=== PATIENT | male | born 1965 | race Caucasian/White ===

== ENCOUNTER 2017-07-08 09:44 | Day surgery (SDC) | payer BC ==
[2017-07-08] MEDS ORDERED: PROPOFOL 60 ML ONE (10:40)
[2017-07-08] MEDS ORDERED: LIDOCAINE 2% (SDV) 5 ML INJ ONE (10:40)
--- NOTE | 2017-07-08 20:32 | GILP ---
DATE OF PROCEDURE: 07/08/2017 PROCEDURES PERFORMED: 1. Esophagogastroduodenoscopy and biopsy. 2. Colonoscopy and biopsy. SURGEON: Dr. Hernandez. PREOPERATIVE DIAGNOSES: 1. Abdominal pain. 2. Chronic diarrhea. 3. Positive occult blood in stool. POSTOPERATIVE DIAGNOSES: 1. Hiatal hernia. 2. Reflux esophagitis. 3. Gastritis with erosions. 4. Gastric mucosal biopsies were taken for Helicobacter pylori test. 5. Small bowel biopsies were taken to rule out celiac disease. 6. Colonoscopy all the way to the cecum and into the terminal ilium. 7. Normal terminal ilium. 8. Internal hemorrhoids. 9. Random biopsies were taken to rule out microscopic colitis. INDICATION: Mr. Rolf To is a 51-year-old male patient who had upper abdominal pain and chronic diarrhea not responding to therapy. He also had positive occult blood in stool. He was scheduled for endoscopy and colonoscopy for further evaluation. The procedures and possible complications were well explained to the patient. He understood and consented to the procedures. DESCRIPTION OF PROCEDURE: Under the influence of anesthesia, the gastroscope was carefully introduced into the esophagus. Under direct vision, it was advanced to the stomach, into the pylorus, into the duodenal bulb, and descending duodenum. Findings esophagus, the patient had reflux esophagitis with erosions. Stomach, he had gastritis with erosions. Gastric mucosal biopsies were taken for Helicobacter pylori test. Duodenum was normal. Small bowel biopsies were taken to rule out celiac disease. The colonoscope was carefully introduced in the rectum and under direct vision, it was advanced all the way to the cecum into the ileocecal valve into the terminal ilium. Findings the terminal ilium was normal. The colonic mucosa was normal. Random biopsies were taken to rule out microscopic colitis. The patient was noted to have internal hemorrhoids. He tolerated the procedures very well. There was no complication from the procedures. At the end of procedure, he was awake with stable vital signs. He was discharged home in care of his family. IMPRESSION: See postop diagnoses. PLAN: 1. Nexium 24 hours p.o. q.a.m. 2. Bentyl 10 mg p.o. t.i.d. p.r.n. for diarrhea. 3. Await histopathology reports. Dictated By: MD NOHEMI Colon/ti/josephine /Document#: [id number]
== END 2017-07-08 15:02 | disposition home or self-care (01) ==
LOC: GIL 09:44 → EDBD 10:30 → GIL 15:02
PROVIDERS: ATTEND Internal Medicine Gastroenterology
DX: K92.1 Melena (principal); K44.9 Diaphragmatic hernia without obstruction or gangrene; K21.0 Gastro-esophageal reflux disease with esophagitis; K29.60 Other gastritis without bleeding
CPT/HCPCS: 43239; 45380; 87081; 88305; Z7610

== ENCOUNTER 2019-01-31 17:23 | Inpatient (IN) | payer BC ==
[~2019-01-31] VITALS: Ht 175.3 cm; Wt 71.9 kg
[2019-01-31 19:50] VITALS: Ht 175.3 cm; Wt 71.9 kg
[2019-01-31] MEDS ORDERED: ACETAMINOPHEN 325 MG TAB PO PRN (20:00)
[2019-01-31] MEDS ORDERED: ONDANSETRON 4 MG INJ IV PRN (20:00)
[2019-01-31] MEDS ORDERED: HYDROCODONE/APAP (5/325) TAB PO PRN (20:00)
[2019-01-31] MEDS ORDERED: NACL 0.9% 3 ML SYG IV SCH (20:00)
[2019-01-31 20:03] VITALS: BP 125/79; PULSE 86; RESP 18
[2019-01-31] MEDS ORDERED: MAGNESIUM HYDROXIDE 30ML CUP PO ONE (21:00)
[2019-01-31] MEDS ORDERED: ZOLPIDEM 5 MG TAB PO ONE (21:00)
[2019-01-31] MEDS: HEPARIN 5,000 UNIT/1 ML VIAL SC SCH (21:01)
[2019-01-31] MEDS: KETOROLAC 30 MG INJ IV PRN (21:15)
--- NOTE | 2019-01-31 23:19 | HP ---
Date/Time of Note Date/Time of Note DATE: 01/31/19 TIME: 23:19 Assessment/Plan VTE Prophylaxis Risk score (from Nsg)>0 risk: 3 SCD applied (from Nsg): Yes Pharmacological prophylaxis: heparin Lines/Catheters IV Catheter Type (from Nrsg): Saline Lock Assessment/Plan Assessment/Plan 1. Right lower extremity cellulitis -IV antibiotic -Venous study to evaluate for a DVT 2. History of testicular cancer, status post surgery in 2003 3. History of anxiety/PTSD/depression: No acute issue 4. History of hypertension: BP in acceptable range HPI/ROS Admit Date/Time Admit Date/Time Jan 31, 2019 at 19:19 Hx of Present Illness 14 This is a 8 patient initially presented on outside hospital complaining of right lower extremity swelling, redness and tenderness. He said this started about 2 weeks. He stated that he was hospitalized at [facility] [place] for about 3 days for a right lower extremity cellulitis. He said at the time of discharge, he did not notice improvement. He said he was discharged without antibiotic. When swelling and redness persists, he decided to come here for evaluation. PMH/Family/Social Past Medical History Medical History: other (See HPI) Medications Current Medications IV Flush (NS 3 ml) 3 ml PER PROTOCOL IV ; Start 01/31/19 at 20:00 Ondansetron HCl (Zofran Inj) 4 mg Q6H PRN IV NAUSEA/VOMITING; Start 01/31/19 at 20:00 Acetaminophen (Tylenol Tab) 650 mg Q6H PRN PO .PAIN 1-3 OR TEMP; Start 01/31/19 at 20:00 Heparin Sodium (Porcine) (Heparin (5000 Units/1ml)) 5,000 unit Q12 SC Last administered on 01/31/19at 21:01; Admin Dose 5,000 UNIT; Start 01/31/19 at 21:00 Ketorolac Tromethamine (Toradol) 30 mg Q6H PRN IV PAIN LEVEL 1-3 Last administered on 01/31/19at 21:15; Admin Dose 30 MG; Start 01/31/19 at 21:00; Stop 02/03/19 at 20:59 Magnesium Hydroxide (Milk Of Mag) 30 ml BID PRN PO CONSTIPATION; Start 02/01/19 at 09:00 Coded Allergies: Penicillins (Verified Allergy, Unknown, RASH, 01/31/19) codeine (Verified Allergy, Unknown, RASH, 01/31/19) latex (Verified Allergy, Unknown, RASH, 01/31/19) Past Surgical History Past Surgical Hx: other (See HPI) Family History Significant Family History: no pertinent family hx Social History Alcohol Use: none Smoking Status: Current every day smoker Drug Use: none Exam/Review of Systems Vital Signs Vitals Vital Signs Date Temp Pulse Resp B/P (MAP) Pulse Ox O2 O2 Flow FiO2 Time Delivery Rate 01/31/19 98.6 86 18 125/79 97 20:03 (94) Exam Constitutional: alert, oriented, well developed Head: normocephalic, atraumatic Eyes: EOMI, PERRL Respiratory: clear to auscultation, normal air movement Cardiovascular: regular rate and rhythm Gastrointestinal: soft, non-tender Extremities: normal pulses, other (Right lower extremity pitting edema with overlying erythema. Tender to touch) ESPERANZA STANTON MD Jan 31, 2019 23:19
[2019-02-01 02:31] VITALS: BP 152/84; PULSE 78; RESP 18
[2019-02-01] MEDS: KETOROLAC 30 MG INJ IV PRN ×2 (03:07→09:48)
[2019-02-01 07:32] VITALS: BP 129/79; PULSE 76; RESP 18
[2019-02-01] MEDS: HEPARIN 5,000 UNIT/1 ML VIAL SC SCH ×3 (08:46→22:43)
[2019-02-01] MEDS ORDERED: MAGNESIUM HYDROXIDE 30ML CUP PO PRN (09:00)
[2019-02-01 09:15] VITALS: BP 134/57; PULSE 88
[2019-02-01] MEDS ORDERED: VANCOMYCIN IV PER PHARMACY XX SCH (09:30)
[2019-02-01] MEDS ORDERED: VANCOMYCIN HCL 1.25 GM in SOD CHLORIDE 0.9% 250 ML IVPB SCH (11:00)
[2019-02-01] MEDS: morphine 2 MG INJ IV PRN ×4 (11:49→21:22)
--- NOTE | 2019-02-01 12:59 | PN ---
Date/Time of Note Date/Time of Note DATE: 02/01/19 TIME: 12:57 Assessment/Plan VTE Prophylaxis Risk score (from [facility])>0 risk: 3 SCD applied (from [facility]): No SCD contraindicated: other Pharmacological prophylaxis: heparin Lines/Catheters IV [facility] Type (from [facility] Saline Lock Assessment/Plan Assessment/Plan 1. Right lower extremity cellulitis, antibiotics with vancomycin, keep right leg lifed 2. History of testicular cancer, status post surgery in 2003 3. History of anxiety/PTSD/depression: No acute issue 4. History of hypertension: BP in acceptable range 5. DVT prophylaxis: heparin Result Diagram: 02/01/19 0608 02/01/19 0608 Results 24hrs Laboratory Tests Test 02/01/19 06:08 White Blood Count 5.0 Red Blood Count 3.82 L Hemoglobin 12.5 L Hematocrit 37.3 L Mean Corpuscular Volume 97.6 Mean Corpuscular Hemoglobin 32.7 Mean Corpuscular Hemoglobin Concent 33.5 Red Cell Distribution Width 14.1 Platelet Count 519 H Mean Platelet Volume 9.1 Immature Granulocytes % 1.000 H Neutrophils % 55.9 Segmented Neutrophils % (Manual) 55 Band Neutrophils % (Manual) 5 H Lymphocytes % 26.1 Lymphocytes % (Manual) 29 Monocytes % 13.2 H Monocytes % (Manual) 8 Eosinophils % 2.4 Eosinophils % (Manual) 1 Basophils % 1.4 Basophils % (Manual) 1 Plasma Cells % (manual) 1 Nucleated Red Blood Cells % 0.0 Immature Granulocytes # 0.050 H Neutrophils # 2.8 Neutrophils # (Manual) 2.8 Band Neutrophils # 0.2 Lymphocytes (Manual) 1.4 Lymphocytes # 1.3 Monocytes # 0.7 Monocytes # (Manual) 0.4 Eosinophils # 0.1 Basophils # 0.1 Basophils # (Manual) 0.0 Plasma Cells # (manual) 0.0 Nucleated Red Blood Cells # 0.0 Platelet Estimate INCREASED Giant Platelets 1 H Polychromasia 1+ Macrocytosis 1+ Sodium Level 139 Potassium Level 4.3 Chloride Level 102 Carbon Dioxide Level 29 Anion Gap 8 Blood Urea Nitrogen 13 Creatinine 0.68 Est Glomerular Filtrat Rate mL/min > 60 Glucose Level 101 Hemoglobin A1c 5.4 Calcium Level 8.7 Phosphorus Level 3.8 Magnesium Level 2.0 Total Bilirubin 0.4 Direct Bilirubin 0.00 Indirect Bilirubin 0.4 Aspartate Amino Transf (AST/SGOT) 29 Alanine Aminotransferase (ALT/SGPT) 16 Alkaline Phosphatase 72 Total Protein 6.3 Albumin 3.0 L Globulin 3.30 H Albumin/Globulin Ratio 0.90 Triglycerides Level 96 Cholesterol Level 142 LDL Cholesterol, Calculated 100 HDL Cholesterol 23 L Cholesterol/HDL Ratio 6.1 Subjective 24 Hr Interval Summary Free Text/Dictation right leg pain and swelling Exam/Review of Systems Exam Vitals Vital Signs Date Temp Pulse Resp B/P (MAP) Pulse Ox O2 O2 Flow FiO2 Time Delivery Rate 02/01/19 88 134/57 09:15 (82) 02/01/19 98.4 18 99 07:32 Intake and Output 01/31/19 01/31/19 02/01/19 1515:00 23:00 07:00 IntakeIntake Total 820 ml 400 ml OutputOutput Total 600 ml BalanceBalance 220 ml 400 ml Constitutional: alert, oriented, well developed Psych: no complaints, nl mood/affect Head: normocephalic, atraumatic Eyes: nl conjunctiva, EOMI, nl lids ENMT: nl external ears & nose, nl lips & teeth, nl nasal mucosa & septum Neck: supple, non-tender Respiratory: clear to auscultation, normal air movement; No congested cough, No crackles/rales, No diminished breath sounds, No intercostal retraction, No labored breathing, No respirations, No tactile fremitus, No wheezing, No other Cardiovascular: regular rate and rhythm, nl pulses; No bruits, No diastolic murmur, No edema, No gallop, No irregular rhythm, No jugular venous distention (JVD), No murmurs/extra sounds, No rub, No systolic murmur, No S3, No S4, No other Gastrointestinal: soft, nl liver, spleen, non-tender; No ascites, No bowel sounds, No distended, No firm, No hepatomegaly, No mass, No rebound or guarding, No splenomegaly, No surgical scars, No tender, No other Musculoskeletal: nl extremities to inspection Extremities: normal pulses, other (right lower extremity edema, redness, warmth and tenderness) Neurological: STATOR CONNECTOR II-XII intact, nl mental status, nl speech, nl strength Results Results 24hrs Laboratory Tests Test 02/01/19 06:08 White Blood Count 5.0 Red Blood Count 3.82 L Hemoglobin 12.5 L Hematocrit 37.3 L Mean Corpuscular Volume 97.6 Mean Corpuscular Hemoglobin 32.7 Mean Corpuscular Hemoglobin Concent 33.5 Red Cell Distribution Width 14.1 Platelet Count 519 H Mean Platelet Volume 9.1 Immature Granulocytes % 1.000 H Neutrophils % 55.9 Segmented Neutrophils % (Manual) 55 Band Neutrophils % (Manual) 5 H Lymphocytes % 26.1 Lymphocytes % (Manual) 29 Monocytes % 13.2 H Monocytes % (Manual) 8 Eosinophils % 2.4 Eosinophils % (Manual) 1 Basophils % 1.4 Basophils % (Manual) 1 Plasma Cells % (manual) 1 Nucleated Red Blood Cells % 0.0 Immature Granulocytes # 0.050 H Neutrophils # 2.8 Neutrophils # (Manual) 2.8 Band Neutrophils # 0.2 Lymphocytes (Manual) 1.4 Lymphocytes # 1.3 Monocytes # 0.7 Monocytes # (Manual) 0.4 Eosinophils # 0.1 Basophils # 0.1 Basophils # (Manual) 0.0 Plasma Cells # (manual) 0.0 Nucleated Red Blood Cells # 0.0 Platelet Estimate INCREASED Giant Platelets 1 H Polychromasia 1+ Macrocytosis 1+ Sodium Level 139 Potassium Level 4.3 Chloride Level 102 Carbon Dioxide Level 29 Anion Gap 8 Blood Urea Nitrogen 13 Creatinine 0.68 Est Glomerular Filtrat Rate mL/min > 60 Glucose Level 101 Hemoglobin A1c 5.4 Calcium Level 8.7 Phosphorus Level 3.8 Magnesium Level 2.0 Total Bilirubin 0.4 Direct Bilirubin 0.00 Indirect Bilirubin 0.4 Aspartate Amino Transf (AST/SGOT) 29 Alanine Aminotransferase (ALT/SGPT) 16 Alkaline Phosphatase 72 Total Protein 6.3 Albumin 3.0 L Globulin 3.30 H Albumin/Globulin Ratio 0.90 Triglycerides Level 96 Cholesterol Level 142 LDL Cholesterol, Calculated 100 HDL Cholesterol 23 L Cholesterol/HDL Ratio 6.1 Medications Medication Current Medications IV Flush (NS 3 ml) 3 ml PER PROTOCOL IV ; Start 01/31/19 at 20:00 Ondansetron HCl (Zofran Inj) 4 mg Q6H PRN IV NAUSEA/VOMITING; Start 01/31/19 at 20:00 Acetaminophen (Tylenol Tab) 650 mg Q6H PRN PO .PAIN 1-3 OR TEMP; Start 01/31/19 at 20:00 Heparin Sodium (Porcine) (Heparin (5000 Units/1ml)) 5,000 unit Q12 SC Last administered on 02/01/19at 08:46; Admin Dose 5,000 UNIT; Start 01/31/19 at 21:00 Magnesium Hydroxide (Milk Of Mag) 30 ml BID PRN PO CONSTIPATION; Start 02/01/19 at 09:00 Vancomycin HCl (Vanco Iv Per Pharmacy) VANCOMYCIN PER PHARMACY PER PROTOCOL XX ; Start 02/01/19 at 09:30 Vancomycin HCl 1.25 gm/Sodium Chloride 250 ml @ 83.333 mls/ hr ONCE IVPB ; Start 02/01/19 at 11:00; Stop 02/01/19 at 16:00 Vancomycin HCl 250 ml @ 125 mls/hr Q12H IVPB ; Start 02/01/19 at 23:00 Morphine Sulfate (morphine) 1 mg Q3H PRN IV SEVERE PAIN LEVEL 7-10 Last administered on 02/01/19at 11:49; Admin Dose 1 MG; Start 02/01/19 at 11:00 SALVADOR VILLASENOR MD Feb 01, 2019 12:59
[2019-02-01 13:50] VITALS: BP 133/85; PULSE 79; RESP 18
[2019-02-01] MEDS ORDERED: ZOLPIDEM 5 MG TAB PO PRN (18:00)
[2019-02-01 19:47] VITALS: BP 143/82; PULSE 74; RESP 19
[2019-02-01] MEDS ORDERED: ZOLPIDEM 5 MG TAB PO ONE (21:00)
[2019-02-01] MEDS: VANCOMYCIN 1 GM 250 ML IVPB SCH (22:30)
[2019-02-02] MEDS: morphine 2 MG INJ IV PRN ×8 (00:28→22:23)
[2019-02-02 01:50] VITALS: BP 145/86; PULSE 76; RESP 18
[2019-02-02] MEDS ORDERED: LORAZEPAM 2 MG INJ IV ONE (05:30)
[2019-02-02 07:57] VITALS: BP 137/78; PULSE 72; RESP 18
--- NOTE | 2019-02-02 08:57 | PSY ---
Date/Time of Note Date/Time of Note DATE: 02/02/19 TIME: 08:51 Psychiatric Subjective Eval Consent Pt consented to telemedicine: Yes Subjective Evaluation Patient location: inpatient Chief Complaint: anxiety History of present illness 53 yo unemployed male with hx alcohol use disorder in early remission ("I don't drink anymore, it is all in the past" - 3 weeks sober) admitted due to LE cellulitis. Pt says he has a hx depression and anxiety and has not been treated for at least 6 months; last treatment [facility] in [facility] the pt was kicked out from for relapsing on alcohol. He denies drug use; UDS was not done on admission. Pt says he is depressed but hopeful and optimistic; he is not able to sleep and says he has VH due to sleep deprivation; he denies SI or HI; he reprots anxiety and restlessness. He denies paranoia. Past psychiatric history pt has a hx one SA years ago and one inpt Hospitalization: Suicidal Attempt(s) Family History denies Medical history as per record Allergies: Coded Allergies: Penicillins (Verified Allergy, Unknown, RASH, 01/31/19) codeine (Verified Allergy, Unknown, RASH, 01/31/19) latex (Verified Allergy, Unknown, RASH, 01/31/19) Substance Abuse Substance abuse history: Yes Prior substance abuse treatmen: Yes Social History Marital status: single DPA/Conservatorship: No Occupation/Chcf: unemployed; worked in construction Psychiatric Objective Eval Review of Systems: Review of Systems: Not Applicable Physical Examination: Physical Examination: Not Applicable Sleep: Insomnia Appetite: Adequate Energy: Adequate Interest: Adequate Mental Status Examination: Appearance: Disheveled Eye Contact: Good Psychomotor Activity: Normal Behavior: Friendly Speech: Clear AFFECT: Appropriate Mood: Depressed, Anxious Though Process: Linear Thought Content: Hallucinations Suicidal: No Homicidal: No On 72 hour hold: No Orientation: x4 Cognition: Alert Insight: Intact Judgement: Intact Attention Span: Intact Laboratory Results Laboratory Tests Test 02/01/19 06:08 02/01/19 16:26 02/02/19 07:04 White Blood Count 5.0 10^3/ul Red Blood Count 3.82 10^6/ul Hemoglobin 12.5 g/dl Hematocrit 37.3 % Mean Corpuscular Volume 97.6 fl Mean Corpuscular Hemoglobin 32.7 pg Mean Corpuscular 33.5 g/dl Hemoglobin Concent Red Cell Distribution Width 14.1 % Platelet Count 519 10^3/UL Mean Platelet Volume 9.1 fl Immature Granulocytes % 1.000 % Neutrophils % 55.9 % Segmented Neutrophils % (Manual) 55 % Band Neutrophils % (Manual) 5 % Lymphocytes % 26.1 % Lymphocytes % (Manual) 29 % Monocytes % 13.2 % Monocytes % (Manual) 8 % Eosinophils % 2.4 % Eosinophils % (Manual) 1 % Basophils % 1.4 % Basophils % (Manual) 1 % Plasma Cells % (manual) 1 % Nucleated Red Blood Cells % 0.0 /100WBC Immature Granulocytes # 0.050 10^3/ul Neutrophils # 2.8 10^3/ul Neutrophils # (Manual) 2.8 10^3/ul Band Neutrophils # 0.2 10^3/ul Lymphocytes (Manual) 1.4 10^3/ul Lymphocytes # 1.3 10^3/ul Monocytes # 0.7 10^3/ul Monocytes # (Manual) 0.4 10^3/ul Eosinophils # 0.1 10^3/ul Basophils # 0.1 10^3/ul Basophils # (Manual) 0.0 10^3/ul Plasma Cells # (manual) 0.0 10^3/ul Nucleated Red Blood Cells # 0.0 10^3/ul Platelet Estimate INCREASED Giant Platelets 1 % Polychromasia 1+ Macrocytosis 1+ Sodium Level 139 mmol/L Potassium Level 4.3 mmol/L Chloride Level 102 mmol/L Carbon Dioxide Level 29 mmol/L Anion Gap 8 Blood Urea Nitrogen 13 mg/dl Creatinine 0.68 mg/dl Est Glomerular Filtrat > 60 mL/min Rate mL/min Glucose Level 101 mg/dl Hemoglobin A1c 5.4 % Calcium Level 8.7 mg/dl Phosphorus Level 3.8 mg/dl Magnesium Level 2.0 mg/dl Total Bilirubin 0.4 mg/dl Direct Bilirubin 0.00 mg/dl Indirect Bilirubin 0.4 mg/dl Aspartate Amino 29 IU/L Transf (AST/SGOT) Alanine 16 IU/L Aminotransferase (ALT/SGPT) Alkaline Phosphatase 72 IU/L Total Protein 6.3 g/dl Albumin 3.0 g/dl Globulin 3.30 g/dl Albumin/Globulin Ratio 0.90 Triglycerides Level 96 mg/dl Cholesterol Level 142 mg/dl LDL Cholesterol, Calculated 100 mg/dl HDL Cholesterol 23 mg/dl Cholesterol/HDL Ratio 6.1 RATIO Urine Color YELLOW Urine Clarity CLEAR Urine pH 6.0 Urine Specific [place] 1.015 Urine Ketones NEGATIVE mg/dL Urine Nitrite NEGATIVE mg/dL Urine Bilirubin NEGATIVE mg/dL Urine Urobilinogen NEGATIVE mg/dL Urine Leukocyte Esterase NEGATIVE Franck/ul Urine Hemoglobin NEGATIVE mg/dL Urine Glucose NEGATIVE mg/dL Urine Total Protein NEGATIVE mg/dl Assessment and Plan Assessment/Diagnosis Diagnosis ALCOHOL USE DISORDER WITH MOOD DISORDER. GEN ANXIETY DISORDER. PTSD PER PT'S SELF REPORTING. Recommendation/Plan Medication Management REMERON 15 MG POQHS; ZYPREXA 5 MG POQHS; THIAMIN 100 MG PO BID; FOCIC ACID 2 MG PO QD Multiple antipsychotics: Yes Discharge Disposition: Community (home) Legal Status: Voluntary Other REFER OUTPT UPON DISCHARFE THIEN GONZALEZ MD Feb 02, 2019 08:57
[2019-02-02] MEDS: HEPARIN 5,000 UNIT/1 ML VIAL SC SCH ×2 (09:08→21:09)
[2019-02-02] MEDS: VANCOMYCIN 1 GM 250 ML IVPB SCH (10:05)
--- NOTE | 2019-02-02 13:45 | PN ---
Date/Time of Note Date/Time of Note DATE: 02/02/19 TIME: 13:39 Assessment/Plan VTE Prophylaxis Risk score (from Ns)>0 risk: 3 SCD applied (from Ns): No SCD contraindicated: bilateral LE trauma Pharmacological prophylaxis: heparin Lines/Catheters [facility] Assessment/Plan Assessment/Plan 1. Right lower extremity cellulitis, antibiotics with vancomycin, keep right leg lifted 2. 2.0 x 3.0 x 5.0 cm complex appearing popliteal cyst, CT scan 3. Left ankle pain, x-ray 4. History of testicular cancer, status post surgery in 2003 5. History of anxiety/PTSD/depression: No acute issue 6. Alcoholic issue, on remeron and zyprexa per tele psych 7. DVT prophylaxis: heparin Result Diagram: 02/01/19 0608 02/01/19 0608 Results 24hrs Laboratory Tests Test 02/01/19 16:26 02/02/19 07:04 Urine Color YELLOW Urine Clarity CLEAR Urine pH 6.0 Urine Specific [place] 1.015 Urine Ketones NEGATIVE Urine Nitrite NEGATIVE Urine Bilirubin NEGATIVE Urine Urobilinogen NEGATIVE Urine Leukocyte Esterase NEGATIVE Urine Hemoglobin NEGATIVE Urine Glucose NEGATIVE Urine Total Protein NEGATIVE Hepatitis B Surface Antigen NEGATIVE Hepatitis B Core Total Antibody NEGATIVE Hepatitis C Antibody NEGATIVE HIV (1&2) Antibody NEGATIVE Subjective 24 Hr Interval Summary Free Text/Dictation still with pain and swelling on right leg agitated last night that tele psych was consulted Exam/Review of Systems Exam Vitals Vital Signs Date Temp Pulse Resp B/P (MAP) Pulse Ox O2 O2 Flow FiO2 Time Delivery Rate 02/02/19 99.1 72 18 137/78 99 07:57 (97) Intake and Output 02/01/19 02/01/19 02/02/19 1515:00 23:00 07:00 IntakeIntake Total 250 ml 250 ml BalanceBalance 250 ml 250 ml Constitutional: alert, oriented, well developed Psych: no complaints, nl mood/affect Head: normocephalic, atraumatic Eyes: nl conjunctiva, EOMI, nl lids, nl sclera, PERRL ENMT: nl external ears & nose, nl lips & teeth, nl nasal mucosa & septum Neck: supple, non-tender Respiratory: clear to auscultation, normal air movement; No congested cough, No crackles/rales, No diminished breath sounds, No intercostal retraction, No labored breathing, No respirations, No tactile fremitus, No wheezing, No other Cardiovascular: regular rate and rhythm, nl pulses; No bruits, No diastolic murmur, No edema, No gallop, No irregular rhythm, No jugular venous distention (JVD), No murmurs/extra sounds, No rub, No systolic murmur, No S3, No S4, No other Gastrointestinal: soft, nl liver, spleen, non-tender Musculoskeletal: nl extremities to inspection Extremities: other (right lower extremity edema and redness below the knee, less redness today) Neurological: DOOR FITTER II-XII intact, nl mental status, nl speech, nl strength Skin: nl turgor Lymph: nl lymph nodes Results Results 24hrs Laboratory Tests Test 02/01/19 16:26 02/02/19 07:04 Urine Color YELLOW Urine Clarity CLEAR Urine pH 6.0 Urine Specific [place] 1.015 Urine Ketones NEGATIVE Urine Nitrite NEGATIVE Urine Bilirubin NEGATIVE Urine Urobilinogen NEGATIVE Urine Leukocyte Esterase NEGATIVE Urine Hemoglobin NEGATIVE Urine Glucose NEGATIVE Urine Total Protein NEGATIVE Hepatitis B Surface Antigen NEGATIVE Hepatitis B Core Total Antibody NEGATIVE Hepatitis C Antibody NEGATIVE HIV (1&2) Antibody NEGATIVE Medications Medication Current Medications IV Flush (NS 3 ml) 3 ml PER PROTOCOL IV ; Start 01/31/19 at 20:00 Ondansetron HCl (Zofran Inj) 4 mg Q6H PRN IV NAUSEA/VOMITING; Start 01/31/19 at 20:00 Acetaminophen (Tylenol Tab) 650 mg Q6H PRN PO .PAIN 1-3 OR TEMP Last ad ministered on 02/01/19at 18:14; Admin Dose 650 MG; Start 01/31/19 at 20:00 Heparin Sodium (Porcine) (Heparin (5000 Units/1ml)) 5,000 unit Q12 SC Last administered on 02/02/19at 09:08; Admin Dose 5,000 UNIT; Start 01/31/19 at 21:00 Magnesium Hydroxide (Milk Of Mag) 30 ml BID PRN PO CONSTIPATION; Start 02/01/19 at 09:00 Vancomycin HCl (Vanco Iv Per Pharmacy) VANCOMYCIN PER PHARMACY PER PROTOCOL XX ; Start 02/01/19 at 09:30 Vancomycin HCl 250 ml @ 125 mls/hr Q12H IVPB Last administered on 02/02/19at 10:05; Admin Dose 125 MLS/HR; Start 02/01/19 at 23:00 Miscellaneous Information (*Rx Drug Level Order Reminder*) CONSTANCEO TR AT 2200 ONCE ONCE XX ; Start 02/02/19 at 22:00; Stop 02/02/19 at 22:01 Morphine Sulfate (morphine) 2 mg Q3H PRN IV SEVERE PAIN LEVEL 7-10; Start 02/02/19 at 14:00; Status UNV Mirtazapine (Remeron) 15 mg HS PO ; Start 02/02/19 at 21:00; Status UNV Olanzapine (Zyprexa) 5 mg HS PO ; Start 02/02/19 at 21:00; Status UNV Thiamine HCl (Vitamin B1) 100 mg DAILY PO ; Start 02/02/19 at 14:00; Status UNV Folic Acid (Folic Acid) 1 mg DAILY PO ; Start 02/02/19 at 14:00 SALVADOR VILLASENOR MD Feb 02, 2019 13:45
[2019-02-02 14:00] VITALS: BP 125/66; PULSE 95; RESP 18
[2019-02-02] MEDS: NICOTINE (14 MG/24 HR) PATCH TRANSDERM SCH (15:30)
[2019-02-02] MEDS: THIAMINE 100 MG TAB PO SCH (16:22)
[2019-02-02] MEDS: FOLIC ACID 1 MG TAB PO SCH (16:22)
[2019-02-02 19:52] VITALS: BP 123/66; PULSE 85; RESP 20
[2019-02-02] MEDS ORDERED: DIPHENHYDRAMINE 25 MG CAP PO PRN (21:00)
[2019-02-02] MEDS ORDERED: METHYLPREDNISOLONE 125 MG INJ IV ONE (21:00)
[2019-02-02] MEDS: RANITIDINE 150 MG TAB PO SCH (21:04)
[2019-02-02] MEDS: MIRTAZAPINE 15 MG TAB PO SCH (21:04)
[2019-02-02] MEDS: OLANZAPINE 5 MG TAB PO SCH (21:04)
[2019-02-03] MEDS: VANCOMYCIN 1 GM 250 ML IVPB SCH (00:32)
[2019-02-03] MEDS: morphine 2 MG INJ IV PRN ×7 (01:23→21:16)
[2019-02-03 01:34] VITALS: BP 115/60; PULSE 74; RESP 20
[2019-02-03] MEDS: NICOTINE (14 MG/24 HR) PATCH TRANSDERM SCH (08:00)
[2019-02-03] MEDS: THIAMINE 100 MG TAB PO SCH (08:00)
[2019-02-03] MEDS: FOLIC ACID 1 MG TAB PO SCH (08:00)
[2019-02-03] MEDS: HEPARIN 5,000 UNIT/1 ML VIAL SC SCH ×2 (08:07→21:25)
[2019-02-03 08:15] VITALS: BP 101/60; PULSE 81; RESP 17
[2019-02-03] MEDS: VANCOMYCIN HCL 1.5 GM in SOD CHLORIDE 0.9% 250 ML IVPB SCH ×2 (09:15→21:16)
--- NOTE | 2019-02-03 14:18 | PN ---
Date/Time of Note Date/Time of Note DATE: 02/03/19 TIME: 14:07 Assessment/Plan VTE Prophylaxis Risk score (from [facility] [place])>0 risk: 3 SCD applied (from [facility] [place]): No SCD contraindicated: other Pharmacological prophylaxis: heparin Lines/Catheters IV Catheter Type (from [facility]): Saline Lock Assessment/Plan Assessment/Plan 1. Right lower extremity cellulitis, antibiotics with vancomycin, keep right leg lifted 2. 2.0 x 3.0 x 5.0 cm complex appearing popliteal cyst, CT scan revealed, ortho consult with Dr. Christian 3. Left ankle pain, x-ray no fracture or dislocation 4. History of testicular cancer, status post surgery in 2003 5. History of anxiety/PTSD/depression: No acute issue 6. Alcoholic issue, on Remeron and zyprexa per tele psych 7. DVT prophylaxis: heparin 8. I had a long talk with the patient regarding the findings and treatment plans. The cellulitis is significantly improved that he needs 7 more days of antibiotics. I explained to him the popliteal cyst formation and treatment with drawing pictures. He states he feels a lump goes from the right thigh all the way down to the bottom of the right foot after he injured the leg. I examined it without finding any lesion. I told him I paz to discharge him with oral antibiotics and he can follow up with his PCP and an orthopedics outpatient for the popliteal cyst. Patient got mad, threw a ice bag to me and cursing me. I will get ortho consult here inpatient with Dr. Christian. Result Diagram: 02/03/19 0444 02/03/19 0444 Results 24hrs Laboratory Tests Test 02/02/19 22:17 02/03/19 04:44 Vancomycin Level Trough 8.0 L White Blood Count 4.1 L Red Blood Count 4.61 #L Hemoglobin 15.1 # Hematocrit 44.5 Mean Corpuscular Volume 96.5 Mean Corpuscular Hemoglobin 32.8 Mean Corpuscular Hemoglobin Concent 33.9 Red Cell Distribution Width 13.6 Platelet Count 608 H Mean Platelet Volume 9.5 Immature Granulocytes % 0.500 H Neutrophils % 79.9 H Lymphocytes % 14.7 L Monocytes % 4.4 Eosinophils % 0.0 Basophils % 0.5 Nucleated Red Blood Cells % 0.0 Immature Granulocytes # 0.020 Neutrophils # 3.3 Lymphocytes # 0.6 L Monocytes # 0.2 L Eosinophils # 0.0 Basophils # 0.0 Nucleated Red Blood Cells # 0.0 Sodium Level 142 Potassium Level 4.8 Chloride Level 105 Carbon Dioxide Level 27 Anion Gap 10 Blood Urea Nitrogen 12 Creatinine 0.63 Est Glomerular Filtrat Rate mL/min > 60 Glucose Level 153 Calcium Level 9.7 Subjective 24 Hr Interval Summary Free Text/Dictation right leg pain Exam/Review of Systems Exam Vitals Vital Signs Date Temp Pulse Resp B/P (MAP) Pulse Ox O2 O2 Flow FiO2 Time Delivery Rate 02/03/19 98.6 81 17 101/60 97 08:15 (74) 02/03/19 Room Air 01:34 Intake and Output 02/02/19 02/02/19 02/03/19 1515:00 23:00 07:00 IntakeIntake Total 970 ml 120 ml 850 ml BalanceBalance 970 ml 120 ml 850 ml Constitutional: alert, oriented, well developed Eyes: nl conjunctiva, EOMI, nl lids ENMT: nl external ears & nose, nl lips & teeth, nl nasal mucosa & septum Neck: supple, non-tender Respiratory: clear to auscultation, normal air movement; No congested cough, No crackles/rales, No diminished breath sounds, No intercostal retraction, No labored breathing, No respirations, No tactile fremitus, No wheezing, No other Cardiovascular: regular rate and rhythm, nl pulses; No bruits, No diastolic murmur, No edema, No gallop, No irregular rhythm, No jugular venous distention (JVD), No murmurs/extra sounds, No rub, No systolic murmur, No S3, No S4, No other Gastrointestinal: soft, nl liver, spleen, non-tender Extremities: normal pulses, other (right lower extremity edema, minimal redness between the knee and the ankle) Neurological: CCNA II-XII intact, nl mental status, nl speech, nl strength Skin: nl turgor Results Results 24hrs Laboratory Tests Test 02/02/19 22:17 02/03/19 04:44 Vancomycin Level Trough 8.0 L White Blood Count 4.1 L Red Blood Count 4.61 #L Hemoglobin 15.1 # Hematocrit 44.5 Mean Corpuscular Volume 96.5 Mean Corpuscular Hemoglobin 32.8 Mean Corpuscular Hemoglobin Concent 33.9 Red Cell Distribution Width 13.6 Platelet Count 608 H Mean Platelet Volume 9.5 Immature Granulocytes % 0.500 H Neutrophils % 79.9 H Lymphocytes % 14.7 L Monocytes % 4.4 Eosinophils % 0.0 Basophils % 0.5 Nucleated Red Blood Cells % 0.0 Immature Granulocytes # 0.020 Neutrophils # 3.3 Lymphocytes # 0.6 L Monocytes # 0.2 L Eosinophils # 0.0 Basophils # 0.0 Nucleated Red Blood Cells # 0.0 Sodium Level 142 Potassium Level 4.8 Chloride Level 105 Carbon Dioxide Level 27 Anion Gap 10 Blood Urea Nitrogen 12 Creatinine 0.63 Est Glomerular Filtrat Rate mL/min > 60 Glucose Level 153 Calcium Level 9.7 Medications Medication Current Medications IV Flush (NS 3 ml) 3 ml PER PROTOCOL IV ; Start 01/31/19 at 20:00 Ondansetron HCl (Zofran Inj) 4 mg Q6H PRN IV NAUSEA/VOMITING; Start 01/31/19 at 20:00 Acetaminophen (Tylenol Tab) 650 mg Q6H PRN PO .PAIN 1-3 OR TEMP Last administered on 02/01/19at 18:14; Admin Dose 650 MG; Start 01/31/19 at 20:00 Heparin Sodium (Porcine) (Heparin (5000 Units/1ml)) 5,000 unit Q12 SC Last administered on 02/03/19at 08:07; Admin Dose 5,000 UNIT; Start 01/31/19 at 21:00 Magnesium Hydroxide (Milk Of Mag) 30 ml BID PRN PO CONSTIPATION; Start 02/01/19 at 09:00 Vancomycin HCl (Vanco Iv Per Pharmacy) VANCOMYCIN PER PHARMACY PER PROTOCOL XX ; Start 02/01/19 at 09:30 Morphine Sulfate (morphine) 2 mg Q3H PRN IV SEVERE PAIN LEVEL 7-10 Last administered on 02/03/19at 11:12; Admin Dose 2 MG; Start 02/02/19 at 14:00 Mirtazapine (Remeron) 15 mg HS PO Last administered on 02/02/19at 21:04; Admin Dose 15 MG; Start 02/02/19 at 21:00 Olanzapine (Zyprexa) 5 mg HS PO Last administered on 02/02/19at 21:04; Admin Dose 5 MG; Start 02/02/19 at 21:00 Thiamine HCl (Vitamin B1) 100 mg DAILY PO Last administered on 02/03/19 08:00; Admin Dose 100 MG; Start 02/02/19 at 14:00 Folic Acid (Folic Acid) 1 mg DAILY PO Last administered on 02/03/19at 08:00; Admin Dose 1 MG; Start 02/02/19 at 14:00 Nicotine (Nicoderm 14 Mg/ 24hr) 1 patch DAILY TRANSDERM ; Start 02/02/19 at 15:30 Ranitidine HCl (Zantac) 150 mg HS PO Last administered on 02/02/19 21:04; Admin Dose 150 MG; Start 02/02/19 at 21:00 Diphenhydramine HCl (Benadryl) 25 mg Q6H PRN PO ITCHING Last administered on 02/02/19at 22:23; Admin Dose 25 MG; Start 02/02/19 at 21:00; Stop 02/03/19 at 21:00 Vancomycin HCl 1.5 gm/Sodium Chloride 250 ml @ 83.333 mls/ hr Q12H IVPB Last administered on 02/03/19at 09:15; Admin Dose 83.333 MLS/HR; Start 02/03/19 at 10:00 SALVADOR VILLASENOR MD Feb 03, 2019 14:18
[2019-02-03 20:00] VITALS: BP 123/76; PULSE 80; RESP 18
[2019-02-03] MEDS: OLANZAPINE 5 MG TAB PO SCH (21:21)
[2019-02-03] MEDS: MIRTAZAPINE 15 MG TAB PO SCH (21:21)
[2019-02-03] MEDS: RANITIDINE 150 MG TAB PO SCH (21:21)
[2019-02-04] MEDS: morphine 2 MG INJ IV PRN ×7 (00:29→20:30)
[2019-02-04 02:00] VITALS: BP 128/75; PULSE 81; RESP 18
[2019-02-04 08:00] VITALS: BP 133/87; PULSE 72; RESP 18
[2019-02-04] MEDS: THIAMINE 100 MG TAB PO SCH (08:33)
[2019-02-04] MEDS: FOLIC ACID 1 MG TAB PO SCH (08:33)
[2019-02-04] MEDS: NICOTINE (14 MG/24 HR) PATCH TRANSDERM SCH (08:33)
[2019-02-04] MEDS: HEPARIN 5,000 UNIT/1 ML VIAL SC SCH ×2 (08:36→20:28)
[2019-02-04] MEDS: VANCOMYCIN HCL 1.5 GM in SOD CHLORIDE 0.9% 250 ML IVPB SCH ×2 (12:12→22:34)
--- NOTE | 2019-02-04 12:39 | PN ---
Date/Time of Note Date/Time of Note DATE: 02/04/19 TIME: 12:37 Assessment/Plan VTE Prophylaxis Risk score (from Ns)>0 risk: 4 SCD applied (from Ns): No SCD contraindicated: other Pharmacological prophylaxis: heparin Lines/Catheters IV Catheter Type (from Nrsg): Saline Lock Assessment/Plan Assessment/Plan 1. Right lower extremity cellulitis, antibiotics with vancomycin, keep right leg lifted, improving 2. 2.0 x 3.0 x 5.0 cm complex appearing popliteal cyst, CT scan revealed, ortho consult with Dr. Christian 3. Left ankle pain, x-ray no fracture or dislocation 4. History of testicular cancer, status post surgery in 2003 5. History of anxiety/PTSD/depression: No acute issue 6. Alcoholic issue, on Remeron and zyprexa per tele psych 7. DVT prophylaxis: heparin Result Diagram: 02/03/1944302/03/19443 Subjective 24 Hr Interval Summary Free Text/Dictation afebrile. calm today, no agitation Exam/Review of Systems Exam Vitals Vital Signs Date Temp Pulse Resp B/P (MAP) Pulse Ox O2 O2 Flow FiO2 Time Delivery Rate 02/04/19 98.6 72 18 133/87 100 Room Air 08:00 (102) Intake and Output 02/03/19 02/03/19 02/04/19 1515:00 23:00 07:00 IntakeIntake Total 610 ml 500 ml 250 ml BalanceBalance 610 ml 500 ml 250 ml Constitutional: alert, oriented, well developed Eyes: nl conjunctiva, EOMI, nl lids, PERRL ENMT: nl external ears & nose, nl lips & teeth, nl nasal mucosa & septum Neck: supple Musculoskeletal: nl extremities to inspection Extremities: other (less swelling and redness on right lower extremity) Neurological: [employer] II-XII intact, nl mental status, nl speech, nl strength Medications Medication Current Medications IV Flush (NS 3 ml) 3 ml PER PROTOCOL IV ; Start 01/31/19 at 20:00 Ondansetron HCl (Zofran Inj) 4 mg Q6H PRN IV NAUSEA/VOMITING; Start 01/31/19 at 20:00 Acetaminophen (Tylenol Tab) 650 mg Q6H PRN PO .PAIN 1-3 OR TEMP Last administered on 02/01/19at 18:14; Admin Dose 650 MG; Start 01/31/19 at 20:00 Heparin Sodium (Porcine) (Heparin (5000 Units/1ml)) 5,000 unit Q12 SC Last administered on 02/04/19 08:36; Admin Dose 5,000 UNIT; Start 01/31/19 at 21:00 Magnesium Hydroxide (Milk Of Mag) 30 ml BID PRN PO CONSTIPATION; Start 02/01/19 at 09:00 Vancomycin HCl (Vanco Iv Per Pharmacy) VANCOMYCIN PER PHARMACY PER PROTOCOL XX ; Start 02/01/19 at 09:30 Morphine Sulfate (morphine) 2 mg Q3H PRN IV SEVERE PAIN LEVEL 7-10 Last administered on 02/04/19 10:30; Admin Dose 2 MG; Start 02/02/19 at 14:00 Mirtazapine (Remeron) 15 mg HS PO Last administered on 02/03/19 21:21; Admin Dose 15 MG; Start 02/02/19 at 21:00 Olanzapine (Zyprexa) 5 mg HS PO Last administered on 02/03/19 21:21; Admin Dose 5 MG; Start 02/02/19 at 21:00 Thiamine HCl (Vitamin B1) 100 mg DAILY PO Last administered on 02/04/19 08:33; Admin Dose 100 MG; Start 02/02/19 at 14:00 Folic Acid (Folic Acid) 1 mg DAILY PO Last administered on 02/04/19 08:33; Admin Dose 1 MG; Start 02/02/19 at 14:00 Nicotine (Nicoderm 14 Mg/ 24hr) 1 patch DAILY TRANSDERM ; Start 02/02/19 at 15:30 Ranitidine HCl (Zantac) 150 mg HS PO Last administered on 02/03/19 21:21; Admin Dose 150 MG; Start 02/02/19 at 21:00 Vancomycin HCl 1.5 gm/Sodium Chloride 250 ml @ 83.333 mls/ hr Q12H IVPB Last administered on 02/04/19 12:12; Admin Dose 83.333 MLS/HR; Start 02/03/19 at 10:00 SALVADOR VILLASENOR MD Feb 04, 2019 12:39
[2019-02-04 13:58] VITALS: BP 120/79; PULSE 84; RESP 18
--- NOTE | 2019-02-04 17:02 | CONS ---
Assessment/Plan Assessment/Plan Hospital Course (Demo Recall) This is a 53-year-old male who was originally admitted to the hospital for right lower extremity cellulitis. For workup of knee pain he was found to have a popliteal cyst as well. I have no concerns for infectious process here. He likely has a meniscus tear given his tenderness to the joint line and the presence of a popliteal cyst. At this time am not recommending any treatment except for ice, NSAIDs, physical therapy. I do not recommend a steroid injection at this time given that he is currently on antibiotics for cellulitis. There is no role for surgical excision or interventional drainage. Plan: Recommend NSAIDs for inflammation of the knee and gluteal cyst. Continue antibiotics per medicine for cellulitis. Consultation Date/Type/Reason Admit Date/Time Jan 31, 2019 at 19:19 Date of Consultation: Feb 04, 2019 Reason for Consultation Posterior right knee pain Date/Time of Note DATE: 02/04/19 TIME: 16:55 Hx of Present Illness This is a 53-year-old male who was admitted to the hospital for right lower extremity cellulitis and leukocytosis. He has been treated with IV antibiotics. He has had significant improvement. However he complained of posterior right knee pain. An ultrasound was obtained by the medicine physician and he was found to have a popliteal cyst. This was further worked up with a CT scan confirming popliteal cyst. Medical physician originally was encouraging the patient to have outpatient follow-up for this however the patient was insistent of an inpatient consult. Therefore, orthopedics was consulted for right p opliteal cyst. He states that his entire right lower extremity continues to be painful and sore although is much improved since the start of antibiotics. He feels posterior knee pain with knee flexion. Denies numbness and tingling. Denies any injury to his knee. Patient denies fever, chills, shortness of breath, chest pain, nausea/vomiting, constipation, diarrhea, numbness, and tingling. Past Medical History Hypertension PTSD/anxiety Testicular cancer Medical History: other (See HPI) Medications Current Medications IV Flush (NS 3 ml) 3 ml PER PROTOCOL IV ; Start 01/31/19 at 20:00 Ondansetron HCl (Zofran Inj) 4 mg Q6H PRN IV NAUSEA/VOMITING; Start 01/31/19 at 20:00 Acetaminophen (Tylenol Tab) 650 mg Q6H PRN PO .PAIN 1-3 OR TEMP Last administered on 02/01/19 18:14; Admin Dose 650 MG; Start 01/31/19 at 20:00 Heparin Sodium (Porcine) (Heparin (5000 Units/1ml)) 5,000 unit Q12 SC Last administered on 02/04/19 08:36; Admin Dose 5,000 UNIT; Start 01/31/19 at 21:00 Magnesium Hydroxide (Milk Of Mag) 30 ml BID PRN PO CONSTIPATION; Start 02/01/19 at 09:00 Vancomycin HCl (Vanco Iv Per Pharmacy) VANCOMYCIN PER PHARMACY PER PROTOCOL XX ; Start 02/01/19 at 09:30 Morphine Sulfate (morphine) 2 mg Q3H PRN IV SEVERE PAIN LEVEL 7-10 Last administered on 02/04/19 13:55; Admin Dose 2 MG; Start 02/02/19 at 14:00 Mirtazapine (Remeron) 15 mg HS PO Last administered on 02/03/19 21:21; Admin Dose 15 MG; Start 02/02/19 at 21:00 Olanzapine (Zyprexa) 5 mg HS PO Last administered on 02/03/19 21:21; Admin Dose 5 MG; Start 02/02/19 at 21:00 Thiamine HCl (Vitamin B1) 100 mg DAILY PO Last administered on 02/04/19 08:33; Admin Dose 100 MG; Start 02/02/19 at 14:00 Folic Acid (Folic Acid) 1 mg DAILY PO Last administered on 02/04/19 08:33; Admin Dose 1 MG; Start 02/02/19 at 14:00 Nicotine (Nicoderm 14 Mg/ 24hr) 1 patch DAILY TRANSDERM ; Start 02/02/19 at 15:30 Ranitidine HCl (Zantac) 150 mg HS PO Last administered on 02/03/19 21:21; Admin Dose 150 MG; Start 02/02/19 at 21:00 Vancomycin HCl 1.5 gm/Sodium Chloride 250 ml @ 83.333 mls/ hr Q12H IVPB Last administered on 02/04/19 12:12; Admin Dose 83.333 MLS/HR; Start 02/03/19 at 10:00 Miscellaneous Information (*Rx Drug Level Order Reminder*) VANCO TROUGH @ 2,100 ON... 2100 ONCE XX ; Start 02/04/19 at 21:00; Stop 02/04/19 at 21:01 Allergies: Coded Allergies: Penicillins (Verified Allergy, Unknown, RASH, 01/31/19) codeine (Verified Allergy, Unknown, RASH, 01/31/19) latex (Verified Allergy, Unknown, RASH, 01/31/19) Past Surgical History Past Surgical Hx: noncontributory, other (See HPI) Family History Significant Family History: no pertinent family hx Social History Alcohol Use: none Smoking Status: Current every day smoker Drug Use: none Exam/Review of Systems Exam Vitals Vital Signs Date Temp Pulse Resp B/P (MAP) Pulse Ox O2 O2 Flow FiO2 Time Delivery Rate 02/04/19 98.2 84 18 120/79 99 Room Air 13:58 (93) Intake and Output 02/03/19 02/03/19 02/04/19 1515:00 23:00 07:00 IntakeIntake Total 610 ml 500 ml 250 ml BalanceBalance 610 ml 500 ml 250 ml Exam General: Awake, alert, in no acute distress, pleasant and cooperative Heart: regular rhythm Lungs: breathing comfortably, no tachypnea or dyspnea MUSCULOSKELETAL: Right lower extremity: Resolving erythema of the right foot and lower leg. There is significant reduction in previous edema given positive wrinkle sign. There is mild tenderness to palpation throughout the foot and lower leg. There is no palpable fluid collection or cyst in the popliteal fossa however he does have some tenderness to palpation. There is mild tenderness palpation to both the medial and lateral joint line. Range of motion is from 0-100 degrees. Ligamentously stable. Sensation intact to light touch in a sural, saphenous, deep peroneal, superficial peroneal, medial and lateral plantar nerve distribution. Motor is intact, patient able to dorsiflex and plantarflex ankle and extend and flex great toe. Dorsalis Pedis pulse +2, Brisk capillary refill. Compartments are so ft. Calves non-tender to palpation bilaterally. Results Result Diagram: 02/03/1944302/03/[address] scan right lower extremity: Moderate sized joint effusion with associated moderate sized popliteal cyst, as seen on ultrasound. Soft tissue swelling without focal fluid collection or soft tissue gas. No evidence of acute osseous abnormality Medications Medication Current Medications IV Flush (NS 3 ml) 3 ml PER PROTOCOL IV ; Start 01/31/19 at 20:00 Ondansetron HCl (Zofran Inj) 4 mg Q6H PRN IV NAUSEA/VOMITING; Start 01/31/19 at 20:00 Acetaminophen (Tylenol Tab) 650 mg Q6H PRN PO .PAIN 1-3 OR TEMP Last administered on 02/01/19 18:14; Admin Dose 650 MG; Start 01/31/19 at 20:00 Heparin Sodium (Porcine) (Heparin (5000 Units/1ml)) 5,000 unit Q12 SC Last adm inistered on 02/04/19 08:36; Admin Dose 5,000 UNIT; Start 01/31/19 at 21:00 Magnesium Hydroxide (Milk Of Mag) 30 ml BID PRN PO CONSTIPATION; Start 02/01/19 at 09:00 Vancomycin HCl (Vanco Iv Per Pharmacy) VANCOMYCIN PER PHARMACY PER PROTOCOL XX ; Start 02/01/19 at 09:30 Morphine Sulfate (morphine) 2 mg Q3H PRN IV SEVERE PAIN LEVEL 7-10 Last administered on 02/04/19 13:55; Admin Dose 2 MG; Start 02/02/19 at 14:00 Mirtazapine (Remeron) 15 mg HS PO Last administered on 02/03/19 21:21; Admin Dose 15 MG; Start 02/02/19 at 21:00 Olanzapine (Zyprexa) 5 mg HS PO Last administered on 02/03/19 21:21; Admin Dose 5 MG; Start 02/02/19 at 21:00 Thiamine HCl (Vitamin B1) 100 mg DAILY PO Last administered on 02/04/19 08:33; Admin Dose 100 MG; Start 02/02/19 at 14:00 Folic Acid (Folic Acid) 1 mg DAILY PO Last administered on 02/04/19 08:33; Admin Dose 1 MG; Start 02/02/19 at 14:00 Nicotine (Nicoderm 14 Mg/ 24hr) 1 patch DAILY TRANSDERM ; Start 02/02/19 at 15:30 Ranitidine HCl (Zantac) 150 mg HS PO Last administered on 02/03/19 21:21; Admin Dose 150 MG; Start 02/02/19 at 21:00 Vancomycin HCl 1.5 gm/Sodium Chloride 250 ml @ 83.333 mls/ hr Q12H IVPB Last administered on 02/04/19 12:12; Admin Dose 83.333 MLS/HR; Start 02/03/19 at 10:00 Miscellaneous Information (*Rx Drug Level Order Reminder*) VANCO TROUGH @ 2,100 ON... 2100 ONCE XX ; Start 02/04/19 at 21:00; Stop 02/04/19 at 21:01 TRENT AIKEN MD Feb 04, 2019 17:02
[2019-02-04] MEDS: RANITIDINE 150 MG TAB PO SCH (20:26)
[2019-02-04] MEDS: MIRTAZAPINE 15 MG TAB PO SCH (20:26)
[2019-02-04] MEDS: OLANZAPINE 5 MG TAB PO SCH (20:26)
[2019-02-04 20:33] VITALS: BP_SYST 124; BP_DIAS 124; BP_DIAS 72; PULSE 79; RESP 18
[2019-02-04] MEDS ORDERED: DIPHENHYDRAMINE 50 MG CAP PO ONE (22:30)
[2019-02-05] MEDS: morphine 2 MG INJ IV PRN ×8 (00:14→23:40)
[2019-02-05 02:16] VITALS: BP 140/76; PULSE 70; RESP 18
[2019-02-05 08:00] VITALS: BP 122/81; PULSE 77; RESP 18
[2019-02-05] MEDS: FOLIC ACID 1 MG TAB PO SCH (09:01)
[2019-02-05] MEDS: NICOTINE (14 MG/24 HR) PATCH TRANSDERM SCH (09:01)
[2019-02-05] MEDS: THIAMINE 100 MG TAB PO SCH (09:01)
[2019-02-05] MEDS: HEPARIN 5,000 UNIT/1 ML VIAL SC SCH ×2 (09:03→20:21)
[2019-02-05] MEDS: VANCOMYCIN HCL 1.5 GM in SOD CHLORIDE 0.9% 250 ML IVPB SCH ×2 (10:33→22:21)
[2019-02-05 14:00] VITALS: BP 139/77; PULSE 91; RESP 18
--- NOTE | 2019-02-05 15:35 | PN ---
Date/Time of Note Date/Time of Note DATE: 02/05/19 TIME: 15:33 Assessment/Plan VTE Prophylaxis Risk score (from Ns)>0 risk: 4 SCD applied (from Ns): No SCD contraindicated: low risk/ambulating Pharmacological prophylaxis: NA/contraindicated Pharm contraindication: low risk/ambulating Lines/Catheters IV Catheter Type (from Nrs): Peripheral IV Assessment/Plan Hospital Course Assessment and plan Right lower extremity cellulitis versus stasis, stable finish antibiotics PTSD Bilateral popliteal cyst? Hypertension Anxiety disorder Alcoholism? Past? History of testicular cancer Nonadherence UTI? Subjective: Anxiety, pain from his kidneys, pain from his knees Objective: Vital signs stable Physical exam No pallor Regular Clear Benign: Scars CDI Mild tender posterior knees; may be some stasis no adenopathy Result Diagram: 02/03/194 02/03/19 0444 Results 24hrs Laboratory Tests Test 02/04/19 20:25 Vancomycin Level Trough 15.7 Exam/Review of Systems Exam Vitals Vital Signs Date Temp Pulse Resp B/P (MAP) Pulse Ox O2 O2 Flow FiO2 Time Delivery Rate 02/05/19 98.1 91 18 139/77 99 14:00 (97) 02/04/19 Room Air 13:58 Intake and Output 02/04/19 02/04/19 02/05/19 1515:00 23:00 07:00 IntakeIntake Total 760 ml 1250 ml 250 ml BalanceBalance 760 ml 1250 ml 250 ml Results Results 24hrs Laboratory Tests Test 02/04/19 20:25 Vancomycin Level Trough 15.7 Medications Medication Current Medications IV Flush (NS 3 ml) 3 ml PER PROTOCOL IV ; Start 01/31/19 at 20:00 Ondansetron HCl (Zofran Inj) 4 mg Q6H PRN IV NAUSEA/VOMITING; Start 01/31/19 at 20:00 Acetaminophen (Tylenol Tab) 650 mg Q6H PRN PO .PAIN 1-3 OR TEMP Last administered on 02/01/19at 18:14; Admin Dose 650 MG; Start 01/31/19 at 20:00 Heparin Sodium (Porcine) (Heparin (5000 Units/1ml)) 5,000 unit Q12 SC Last adm inistered on 02/05/19at 09:03; Admin Dose 5,000 UNIT; Start 01/31/19 at 21:00 Magnesium Hydroxide (Milk Of Mag) 30 ml BID PRN PO CONSTIPATION; Start 02/01/19 at 09:00 Vancomycin HCl (Vanco Iv Per Pharmacy) VANCOMYCIN PER PHARMACY PER PROTOCOL XX ; Start 02/01/19 at 09:30 Morphine Sulfate (morphine) 2 mg Q3H PRN IV SEVERE PAIN LEVEL 7-10 Last administered on 02/05/19 12:46; Admin Dose 2 MG; Start 02/02/19 at 14:00 Mirtazapine (Remeron) 15 mg HS PO Last administered on 02/04/19 20:26; Admin Dose 15 MG; Start 02/02/19 at 21:00 Olanzapine (Zyprexa) 5 mg HS PO Last administered on 02/04/19 20:26; Admin Dose 5 MG; Start 02/02/19 at 21:00 Thiamine HCl (Vitamin B1) 100 mg DAILY PO Last administered on 02/05/19 09:01; Admin Dose 100 MG; Start 02/02/19 at 14:00 Folic Acid (Folic Acid) 1 mg DAILY PO Last administered on 02/05/19 09:01; Admin Dose 1 MG; Start 02/02/19 at 14:00 Nicotine (Nicoderm 14 Mg/ 24hr) 1 patch DAILY TRANSDERM Last administered on 02/05/19 09:01; Admin Dose 1 PATCH; Start 02/02/19 at 15:30 Ranitidine HCl (Zantac) 150 mg HS PO Last administered on 02/04/19 20:26; Admin Dose 150 MG; Start 02/02/19 at 21:00 Vancomycin HCl 1.5 gm/Sodium Chloride 250 ml @ 83.333 mls/ hr Q12H IVPB Last administered on 02/05/19 10:33; Admin Dose 83.333 MLS/HR; Start 02/03/19 at 10:00 DELPHINE JACK MD Feb 05, 2019 15:35
[2019-02-05] MEDS ORDERED: KETOROLAC 30 MG INJ IV PRN (16:00)
[2019-02-05] MEDS ORDERED: IBUPROFEN 800 MG TAB PO PRN (16:00)
[2019-02-05 19:45] VITALS: BP 136/74; PULSE 88; RESP 20
[2019-02-05] MEDS: OLANZAPINE 5 MG TAB PO SCH (20:16)
[2019-02-05] MEDS: RANITIDINE 150 MG TAB PO SCH (20:16)
[2019-02-05] MEDS: MIRTAZAPINE 15 MG TAB PO SCH (20:17)
[2019-02-05] MEDS: LACTOBACILLUS RHAMNOSUS CAP PO SCH (20:17)
[2019-02-06 01:51] VITALS: BP 124/77; PULSE 82; RESP 20
[2019-02-06] MEDS: morphine 2 MG INJ IV PRN ×3 (03:04→09:51)
[2019-02-06 08:07] VITALS: BP 134/81; PULSE 74; RESP 16
[2019-02-06] MEDS: LACTOBACILLUS RHAMNOSUS CAP PO SCH (09:02)
[2019-02-06] MEDS: NICOTINE (14 MG/24 HR) PATCH TRANSDERM SCH (09:02)
[2019-02-06] MEDS: THIAMINE 100 MG TAB PO SCH (09:03)
[2019-02-06] MEDS: HEPARIN 5,000 UNIT/1 ML VIAL SC SCH (09:03)
[2019-02-06] MEDS: FOLIC ACID 1 MG TAB PO SCH (09:03)
[2019-02-06] MEDS: VANCOMYCIN HCL 1.5 GM in SOD CHLORIDE 0.9% 250 ML IVPB SCH (09:07)
--- NOTE | 2019-02-06 10:59 | PDOCDIS ---
Discharge Instructions CONDITION [id number] Patient Condition: [id number] Stable HOME CARE INSTRUCTIONS: [id number] Diet Instructions: [id number] Regular ACTIVITY: [id number] Activity Restrictions: [id number] Slowly Increase Activity Rest between Activity Avoid heavy lifting FOLLOW UP/APPOINTMENTS Follow-up Plan appt primary 1wk Dr Anahi valentine 2wks DELPHINE JACK MD Feb 06, 2019 10:59
[2019-02-06] MEDS ORDERED: Nicotine (14 Mg/24 Hr) TRANSDERM (11:00)
[2019-02-06] MEDS ORDERED: ACET325T33 PO (11:00)
--- NOTE | 2019-02-06 11:51 | DS ---
Date/Time of Note Date/Time of Note DATE: 02/06/19 TIME: 11:48 Discharge Summary Admission/Discharge Info Admit Date/Time Jan 31, 2019 at 19:19 Discharge Date/Time Patient Condition: Stable Consults ortho/ Dr Christian Procedures Venous ultrasound No DVT Ankle x-ray No fracture CAT scan lower extremity CLINICAL INDICATION: Popliteal cyst. TECHNIQUE: CT scan of the right knee was performed on a multi -slice scanner. No IV contrast was administered. Coronal and sagittal reformatted images were obtained from the axial source images. The total exam DLP equals 145.67 mGy-cm. The CDTI volume was 2.52 mGy. One or more of the following dose reduction techniques were used: - Automated exposure control. - Adjustment of the mA and/or kV according to patient size . - Use of iterative reconstruction technique. Images were reviewed on a high-resolution PACS workstation. Dicom images are available. COMPARISON: US EXTREMITY 02/01/2019; CR LOW_EXM 01/23/2019 FINDINGS: No acute fracture or dislocation. No significant arthropathy or erosive changes. No osteophyte formation. Small suprapatellar enthesophyte. No focal or aggressive appearing osseous lesion. Moderate sized joint effusion with moderate sized popliteal cyst measuring approximately 2.3 x 2.6 x 4.7 cm (series 2 image 104 and sagittal image 37). No lipohemarthrosis or loose intra-articular body. Moderate diffuse soft tissue swelling. IMPRESSION: Moderate sized joint effusion with associated moderate sized popliteal cyst, as seen on ultrasound. Soft tissue swelling without focal fluid collection or soft tissue gas. No evidence of acute osseous abnormality. Hx of Present Illness Evaluated managed for lower extremity pains. Hospital Course Hospitalist coverage/hospital course Symptomatic popliteal cyst, stable, discharge home on conservative care. Patient to follow-up with Ortho. Cellulitis? Patient finished antibiotics in the hospital. Assessment and plan Right lower extremity cellulitis vs stasis, stable finished antibiotics PTSD Bilateral popliteal cyst Hypertension Anxiety disorder Alcoholism? Past? History of testicular cancer Nonadherence UTI? Urine unremarkable. Renal function tests normal. Subjective: Anxiety, pain from his 'kidneys', pain from his knees Objective: Vital signs stable Physical exam No pallor Regular Clear Benign: Scars CDI Mild tender posterior knees; may be some stasis no adenopathy Home Meds Active Scripts Acetaminophen* (Tylenol*) 325 Mg Tablet, 650 MG PO Q6H PRN for .PAIN 1-3 OR TEMP for 1 Day, TAB Prov:DELPHINE JACK MD 02/06/19 [Nicotine (14 Mg/24 Hr)] PATCH No Conflict Check, 1 PATCH TRANSDERM DAILY for 1 Day, #1 Prov:DELPHINE JACK MD 02/06/19 Follow-up Plan appt primary 1wk Dr Christian - ortho 2wks Primary Care Provider Not On Staff Doctor Time spent on discharge: > 30 minutes Pending Labs Laboratory Tests Test 02/06/19 06:29 White Blood Count 4.7 10^3/ul (4.8-10.8) Red Blood Count 4.15 10^6/ul (4.70-6.10) Hemoglobin 13.5 g/dl (14.0-18.0) Hematocrit 40.4 % (42.0-52.0) Mean Corpuscular Volume 97.3 fl (82.0-101.0) Mean Corpuscular Hemoglobin 32.5 pg (29.0-33.0) Mean Corpuscular Hemoglobin Concent 33.4 g/dl (32.0-37.0) Red Cell Distribution Width 13.7 % (11.5-14.5) Platelet Count 534 10^3/UL (140-415) Mean Platelet Volume 9.2 fl (7.4-10.4) Immature Granulocytes % 0.900 % (0.001-0.429) Neutrophils % 46.6 % (39.0-77.0) Lymphocytes % 27.7 % (15.0-51.0) Monocytes % 20.9 % (0.0-11.0) Eosinophils % 2.4 % (0.0-7.0) Basophils % 1.5 % (0.0-2.0) Nucleated Red Blood Cells % 0.0 /100WBC (0.0-0.0) Immature Granulocytes # 0.040 10^3/ul (0.0-0.031) Neutrophils # 2.2 10^3/ul (1.6-7.5) Lymphocytes # 1.3 10^3/ul (0.8-2.9) Monocytes # 1.0 10^3/ul (0.3-0.9) Eosinophils # 0.1 10^3/ul (0.0-0.5) Basophils # 0.1 10^3/ul (0.0-0.1) Nucleated Red Blood Cells # 0.0 10^3/ul (0.0-0.0) Sodium Level 139 mmol/L (135-144) Potassium Level 4.5 mmol/L (3.5-5.1) Chloride Level 101 mmol/L (97-110) Carbon Dioxide Level 29 mmol/L (21-31) Anion Gap 9 (5-13) Blood Urea Nitrogen 15 mg/dl (7-20) Creatinine 0.70 mg/dl (0.61-1.24) Est Glomerular Filtrat Rate mL/min > 60 mL/min (>60) Glucose Level 97 mg/dl (70-220) Hemoglobin A1c 5.4 % (0-5.9) Calcium Level 9.4 mg/dl (8.4-10.2) Total Bilirubin 0.2 mg/dl (0.2-1.3) Direct Bilirubin 0.00 mg/dl (0.00-0.20) Indirect Bilirubin 0.2 mg/dl (0-1.1) Aspartate Amino Transf (AST/SGOT) 25 IU/L (15-46) Alanine Aminotransferase (ALT/SGPT) 24 IU/L (13-69) Alkaline Phosphatase 71 IU/L (42-121) Total Protein 7.1 g/dl (6.1-8.1) Albumin 3.5 g/dl (3.3-4.9) Globulin 3.60 g/dl (1.3-3.2) Albumin/Globulin Ratio 0.97 Thyroid Stimulating Hormone (TSH) 3.150 MIU/L (0.465-4.680) DELPHINE JACK MD Feb 06, 2019 11:51
[2019-02-08] MEDS ORDERED: IBUPROFEN 800 MG TAB PO PRN (22:00)
== END 2019-02-06 14:45 | disposition home or self-care (01) | DRG 603 ==
LOC: 5EC 19:19
PROVIDERS: ADMIT Hospitalist; ATTEND Internal Medicine
DX: L03.115 Cellulitis of right lower limb (principal); F32.9 Major depressive disorder, single episode, unspecified; F43.10 Post-traumatic stress disorder, unspecified; F41.9 Anxiety disorder, unspecified; I10 Essential (primary) hypertension; M71.22 Synovial cyst of popliteal space [Baker], left knee; M71.21 Synovial cyst of popliteal space [Baker], right knee; Z85.47 Personal history of malignant neoplasm of testis; F17.200 Nicotine dependence, unspecified, uncomplicated; F10.21 Alcohol dependence, in remission
CPT/HCPCS: 73610; 73700; 80048; 80053; 80061; 80202; 81003; 82565; 83036; 83735; 84100; 84443; 84520; 85025; 86692; 86703; 86704; 86709; 86803; 87081; 87340; 93971; J1644; J1885; J2060; J2270; J2930; J3370; J7050

== ENCOUNTER 2019-07-25 08:37 | Day surgery (SDC) | payer BC ==
[~2019-07-25] VITALS: Ht 175.3 cm; Wt 65.9 kg
[2019-07-25] VITALS (18 sets, daily range): BP systolic 119–154; BP diastolic 77–102; PULSE 60–78; RESP 11–32; Ht 175.3 cm; Wt 65.9 kg
[~2019-07-25 08:37] MED LIST: ACET325T33 PO; Nicotine (14 Mg/24 Hr) TRANSDERM
[2019-07-25] MEDS ORDERED: LACTATED RINGER'S 1,000 ML IV SCH (09:30)
[2019-07-25] MEDS ORDERED: ROPIVACAINE 0.5 % 30 ML VIAL ONE ×2 (10:14→12:31)
[2019-07-25] MEDS ORDERED: NEOMYC/POLYMYX/BACIT 30 GM OINT ONE (10:14)
[2019-07-25] MEDS ORDERED: IOHEXOL 300MG/ML 30 ML BTL ONE (10:25)
[2019-07-25] MEDS ORDERED: ROCURONIUM 50 MG INJ ONE ×2 (10:38→10:41)
[2019-07-25] MEDS ORDERED: CLINDAMYCIN 900 MG (PMX) 900 MG/50 ML BAG IVPB ONE (10:38)
[2019-07-25] MEDS ORDERED: PROPOFOL 100 ML ONE (10:38)
[2019-07-25] MEDS ORDERED: LIDOCAINE 2% (SDV) 5 ML INJ ONE (10:41)
[2019-07-25] MEDS ORDERED: SODIUM CL BACTERIOSTATIC 30 ML INJ ONE (11:00)
[2019-07-25] MEDS ORDERED: HEPARIN 1000 UNITS/ML 10 ML INJ ONE (11:00)
[2019-07-25] MEDS ORDERED: DEXAMETHASONE 4 MG/ML 5 ML INJ ONE (12:28)
[2019-07-25] MEDS ORDERED: KETOROLAC 30 MG INJ ONE (12:28)
[2019-07-25] MEDS ORDERED: ONDANSETRON 4 MG INJ ONE (12:29)
[2019-07-25] MEDS ORDERED: BUPIVACAINE 0.5% (SDV) 30 ML INJ ONE (12:31)
[2019-07-25] MEDS ORDERED: NEOSTIGMINE 3 MG/3 ML SYRINGE ONE (12:33)
[2019-07-25] MEDS ORDERED: GLYCOPYRROLATE 0.4 MG INJ ONE (12:33)
[2019-07-25] MEDS ORDERED: FENTAnyl 50 MCG/ML VIAL ONE (12:59)
[2019-07-25] MEDS ORDERED: LABETALOL HCL 20MG INJ IV PRN (13:00)
[2019-07-25] MEDS ORDERED: DIPHENHYDRAMINE 50 MG INJ IV PRN (13:00)
[2019-07-25] MEDS ORDERED: EPHEDrine 25 MG/5 ML SYG IV PRN (13:00)
[2019-07-25] MEDS ORDERED: OXYCODONE/ACETAMINOPHEN (5/325) TAB PO PRN ×2 (13:00)
[2019-07-25] MEDS ORDERED: ONDANSETRON 4 MG INJ IV PRN (13:00)
[2019-07-25] MEDS ORDERED: HYDROmorphONE 1 MG/5 ML IV SYRINGE IV PRN ×3 (13:00)
[2019-07-25] MEDS ORDERED: KETOROLAC 30 MG INJ IV PRN (13:00)
[2019-07-25] MEDS ORDERED: FENTAnyl 50 MCG/ML VIAL IV PRN ×3 (13:00)
[2019-07-25] MEDS ORDERED: METOCLOPRAMIDE 10 MG INJ IV PRN (13:00)
[2019-07-25] MEDS ORDERED: MIDAZOLAM 1 MG/ML 2 ML INJ IV PRN (13:00)
[2019-07-25] MEDS ORDERED: hydrALAzine 20 MG INJ IV PRN (13:00)
[2019-07-25] MEDS ORDERED: ALBUTEROL 0.083% (NEB) 2.5 MG/3 ML AMP HHN PRN (13:00)
[2019-07-25] MEDS ORDERED: MEPERIDINE 25 MG INJ IV PRN (13:00)
[2019-07-25] MEDS ORDERED: MEPERIDINE 25 MG INJ ONE (13:02)
== END 2019-07-25 15:25 | disposition home or self-care (01) ==
LOC: SDS 08:37
PROVIDERS: ATTEND Orthopaedic Surgery
DX: S83.241D Other tear of medial meniscus, current injury, right knee, subsequent encounter (principal); S82.141D Displaced bicondylar fracture of right tibia, subsequent encounter for closed fracture with routine healing; M94.261 Chondromalacia, right knee; X58.XXXD Exposure to other specified factors, subsequent encounter
CPT/HCPCS: 29856; 29881; 38232; 73562; J1100; J1200; J1644; J1885; J2175; J2405; J2710; J2795; J3010; Q9967; Z7512; Z7610